=== PATIENT | female | born 1990 | race Caucasian/White ===

== ENCOUNTER 2025-02-22 23:31 | Emergency (ER) | payer OTHER ==
[~2025-02-22] VITALS: Ht 172.7 cm; Wt 65.9 kg
[2025-02-22 23:35] VITALS: O2SAT 99
[2025-02-23 03:30] LABS: HCG SCREEN NEGATIVE
[2025-02-23] MEDS ORDERED: DOXY100T2 MT (03:40)
[2025-02-23 03:55] LABS: CLARITY URINE CLOUDY (CLEAR); COLOR URINE ORANGE (YELLOW); GLUCOSE URINE NEGATIVE (NEGATIVE); KETONES URINE NEGATIVE (NEGATIVE); LEUKOCYTE ESTERASE URINE 2+ (NEGATIVE); NITRITE URINE POSITIVE (NEGATIVE); OCCULT BLOOD URINE 3+ (NEGATIVE); PH URINE 7.0 (4.5-8.0); PROTEIN URINE 4+ (NEGATIVE); SPECIFIC GRAVITY URINE 1.021 (1.005-1.030); UROBILINOGEN URINE 1.0 E.U./dL (0.2-1.0)
[2025-02-23] MEDS ORDERED: NITR100C MT (03:58)
[2025-02-23 04:00] LABS: SQUAMOUS EPITHELIAL CELL URINE FEW /lpf (RARE/1+)
[2025-02-23 04:01] LABS: WBC URINE TNTC /hpf (0-2)
[2025-02-23 04:02] LABS: BACTERIA URINE 1+
[2025-02-23] MEDS: CEFTRIAXONE SODIUM 500MG VIAL IM ONE (04:05)
[2025-02-23 04:18] VITALS: BP 121/79; PULSE 97; RESP 18; TEMP 36.7; O2SAT 99
== END 2025-02-23 04:18 | disposition home or self-care (01) ==
LOC: ER 23:45
DX: N39.0 Urinary tract infection, site not specified (principal); Z11.3 Encounter for screening for infections with a predominantly sexual mode of transmission; Z98.890 Other specified postprocedural states
CPT/HCPCS: 99284; 86592; 87491; 87591; 81003; 81025; 84703; 87086; 87186; 87210; 87077; 36415; 96372; J0696